=== PATIENT | male | born 2000 | race Caucasian/White ===

== ENCOUNTER 2023-10-07 11:16 | Emergency (ER) | payer OTHER ==
[~2023-10-07] VITALS: Ht 185.4 cm; Wt 70.3 kg
[2023-10-07 11:27] VITALS: BP_SYST 136; PULSE 53; RESP 20; TEMP 98.3; O2SAT 100
[2023-10-07] MEDS ORDERED: MORPHINE 4 MG INJ. 4 MG/ML VIAL IM ONE (11:45)
[2023-10-07] MEDS ORDERED: ONDANSETRON 4 MG ODT TAB PO ONE (11:45)
[2023-10-07] MEDS ORDERED: DOXY100C PO (13:21)
[2023-10-07] MEDS ORDERED: TRAM50TA2 PO (13:21)
[2023-10-07] MEDS ORDERED: cefTRIAXone 500 MG in LIDOCAINE 1%, 20 ML MDV 1 ML IM ONE (13:30)
[2023-10-07 13:34] LABS: BILIRUBIN,URINE NEGATIVE (NEGATIVE); BLOOD, URINE NEGATIVE (NEGATIVE); CLARITY/URINE CLEAR (CLEAR); COLOR,URINE YELLOW (YELLOW); GLUCOSE,URINE NEGATIVE (NEGATIVE); KETONES,URINE NEGATIVE (NEGATIVE); LEUKOCYTE ESTERASE ,URINE NEGATIVE (NEGATIVE); NITRITE, URINE NEGATIVE (NEGATIVE); PROTEIN URINE NEGATIVE (NEGATIVE); UROBILINOGEN,URINE 0.2 (0.2-1.0)
[2023-10-07 14:30] VITALS: BP_SYST 136; PULSE 53; RESP 20; TEMP 98.3; O2SAT 100
== END 2023-10-07 14:26 | disposition home or self-care (01) ==
LOC: SED 11:16
DX: N45.1 Epididymitis (principal); N50.811 Right testicular pain; Z79.899 Other long term (current) drug therapy
CPT/HCPCS: 99285; 81001; 36415; 76870; 96372; 87491; 81003; Q0162; J0696; J2270